=== PATIENT | female | born 1975 | race Hispanic/Latino ===

== ENCOUNTER 2020-08-24 21:26 | Inpatient (IN) | payer BC ==
[~2020-08-24 21:26] MED LIST: Iopamidol-370 76% 500 ML 1 ML ONE
[2020-08-24 23:59] LABS: SARS-CoV-2 NAA Rapid Test DETECTED (NotDetected)
[2020-08-25] MEDS ORDERED: Acetaminophen 650 MG Suppository PR PRN (02:39)
[2020-08-25] MEDS ORDERED: Acetaminophen 325 MG TAB PO PRN (02:39)
[2020-08-25] MEDS ORDERED: Ondansetron ODT 4 MG TAB PO PRN (02:39)
[2020-08-25 03:18] LABS: #Lymphocytes 0.9 thou/uL (1.20-3.40); #Monocytes 0.2 thou/uL (0.11-0.59); #Neutrophils 8.8 thou/uL (1.40-6.50); %Basophils 0.2 % (0.0-1.0); %Eosinophils 0.1 % (0.0-10.0); %Lymphocytes 9.2 % (21.0-51.0); %Monocytes 1.6 % (0.0-10.0); %Neutrophils 88.9 % (42.0-75.0); Hemoglobin 12.7 g/dL (12.0-16.0); Mean Corpuscular HGB CONC 34.5 g/dL (32.0-36.0); Mean Corpuscular Hemoglobin 29.9 pg (27.0-31.0); Mean Corpuscular Volume 86.6 fL (78.0-98.0); Mean Platelet Volume 7.5 fL (7.4-10.4); Platelet Count 167 thou/uL (130-400); RBC Distribution Width 13.2 % (11.5-14.5); Red Blood Cell (RBC) Count 4.24 mill/uL (4.20-5.40); White Blood Cell (WBC) Count 9.9 thou/uL (4.8-10.8)
[2020-08-25 03:36] LABS: Anion Gap 13 mmol/L (10-20); BUN (Urea Nitrogen) 16 mg/dL (7.0-18.7); Calc. Creatinine Clearance 124 mL/min (70-130); Calcium 7.2 mg/dL (7.8-10.44); Carbon Dioxide 17 mmol/L (22-29); Chloride 108 mmol/L (98-107); Glucose 141 mg/dL (70-105); Sodium 134 mmol/L (136-145)
[2020-08-25] MEDS ORDERED: Dexamethasone 4 mg/ml Vial SLOW IVP SCH (05:00)
[2020-08-25] MEDS: Ascorbic Acid 500 mg Chewable Tablet PO SCH (09:50)
[2020-08-25] MEDS: Cholecalciferol (Vitamin D3) 400 UNITS TAB PO SCH (09:51)
[2020-08-25] MEDS: Zinc Sulfate 220 MG CAP PO SCH (09:51)
[2020-08-25] MEDS ORDERED: Propofol 1,000 MG/100 ML VIAL IV ONE (17:26)
[2020-08-25] MEDS ORDERED: Succinylcholine 200 MG/10 ml SYRINGE FS ONE (17:40)
[2020-08-25] MEDS: methylPREDNISolone Sod Succ/PF 125 MG in Sodium Chloride 0.9% 250 ML 250 ML IVPB SCH (18:00)
[2020-08-25] MEDS ORDERED: Propofol BOLUS 1,000 MG/100 ML VIAL IV PRN (19:00)
[2020-08-25] MEDS ORDERED: DISCONTINUE PREVIOUS NARCOTIC PAIN MEDICATIONS AND BENZODIAZEPINES FS SCH (19:00)
[2020-08-25] MEDS ORDERED: Fentanyl BOLUS 250 ML IVPB PRN (19:00)
[2020-08-25] MEDS ORDERED: Ivermectin 3 MG TAB PO SCH (19:00)
[2020-08-25] MEDS: Propofol 1,000 MG/100 ML VIAL IV PRN (19:25)
[2020-08-25] MEDS: Pantoprazole 40 MG VIAL IVP SCH (19:27)
[2020-08-25] MEDS: Lorazepam 2 MG/ML VIAL SLOW IVP PRN ×3 (19:45→23:59)
[2020-08-25 19:57] LABS: Actual Bicarbonate (HCO3a) 21.6 mEq/L (22-28); Base Excess (BEa) -1.5 mEq/L (-2.0 to +3.0); CO2 Tension 31.6 mmHg (35.0-45.0); Calcium, Ionized (arterial) 1.06 mmol/L (1.12-1.30); Carboxyhemoglobin (COHb) 0.1 gm% (0.0-3.0); Hemoglobin (Hb) 13.2 g/dL (12.0-16.0); O2 Tension (PaO2), arterial 100.8 mmHg (80.0-100.0); Potassium - ABG Lab 3.85 mmol/L (3.70-5.30); pH, Arterial 7.45 (7.35-7.45)
[2020-08-25] MEDS: Vecuronium 10 MG VIAL IV PRN ×2 (20:10→22:21)
[2020-08-25 20:22] LABS: Puncture Site LRA
[2020-08-25] MEDS: Enoxaparin Sodium 60 MG/0.6 ML SYRINGE SC SCH (20:22)
[2020-08-25] MEDS: Colchicine 0.6 MG TAB PO SCH (20:22)
[2020-08-25] MEDS ORDERED: Doxycycline 100 MG in Syringe 0 ML IVPB SCH (21:00)
[2020-08-25] MEDS ORDERED: Enoxaparin Sodium 40 MG/0.4 ML SYRINGE SC SCH (21:00)
[2020-08-26] MEDS: Vecuronium 10 MG VIAL IV PRN ×11 (00:01→22:10)
[2020-08-26] MEDS: Propofol 1,000 MG/100 ML VIAL IV PRN ×6 (02:04→19:34)
[2020-08-26 03:45] LABS: #Lymphocytes 1.1 thou/uL (1.20-3.40); #Monocytes 0.7 thou/uL (0.11-0.59); #Neutrophils 9.4 thou/uL (1.40-6.50); %Basophils 0.1 % (0.0-1.0); %Eosinophils 0.1 % (0.0-10.0); %Lymphocytes 9.5 % (21.0-51.0); %Monocytes 6.3 % (0.0-10.0); %Neutrophils 84.1 % (42.0-75.0); Hemoglobin 11.7 g/dL (12.0-16.0); Mean Corpuscular Hemoglobin 29.2 pg (27.0-31.0); Mean Platelet Volume 7.7 fL (7.4-10.4); Platelet Count 241 thou/uL (130-400); RBC Distribution Width 13.2 % (11.5-14.5); Red Blood Cell (RBC) Count 4.01 mill/uL (4.20-5.40); White Blood Cell (WBC) Count 11.2 thou/uL (4.8-10.8)
[2020-08-26 04:26] LABS: ALT (SGPT) 50 U/L (8-55); AST (SGOT) 98 U/L (5-34); Albumin 2.7 g/dL (3.5-5.0); Alkaline Phosphatase 92 U/L (40-110); Anion Gap 16 mmol/L (10-20); BUN (Urea Nitrogen) 21 mg/dL (7.0-18.7); Bilirubin, Total 0.3 mg/dL (0.2-1.2); Calc. Creatinine Clearance 116 mL/min (70-130); Calcium 7.3 mg/dL (7.8-10.44); Carbon Dioxide 16 mmol/L (22-29); Chloride 112 mmol/L (98-107); Globulin 3.5 g/dL (2.4-3.5); Glucose 146 mg/dL (70-105); Potassium 3.9 mmol/L (3.5-5.1); Protein, Total 6.2 g/dL (6.0-8.3); Sodium 140 mmol/L (136-145)
[2020-08-26] MEDS: Lorazepam 2 MG/ML VIAL SLOW IVP PRN ×9 (04:48→22:05)
[2020-08-26] MEDS: Pantoprazole 40 MG VIAL IVP SCH ×2 (05:04→17:35)
[2020-08-26] MEDS: Ascorbic Acid 500 mg Chewable Tablet PO SCH (08:46)
[2020-08-26] MEDS: Enoxaparin Sodium 60 MG/0.6 ML SYRINGE SC SCH ×2 (08:46→19:32)
[2020-08-26] MEDS: Colchicine 0.6 MG TAB PO SCH ×2 (08:47→19:32)
[2020-08-26] MEDS: Cholecalciferol (Vitamin D3) 400 UNITS TAB PO SCH (08:47)
[2020-08-26] MEDS: Zinc Sulfate 220 MG CAP PO SCH (08:47)
[2020-08-26] MEDS: Aspirin Chewable 81 MG TAB PO SCH (08:47)
[2020-08-26] MEDS ORDERED: Fentanyl CADD 100 ML ONE (10:56)
[2020-08-26] MEDS: Fentanyl CADD 100 ML IV SCH (11:03)
[2020-08-26] MEDS: methylPREDNISolone Sod Succ/PF 125 MG in Sodium Chloride 0.9% 250 ML 250 ML IVPB SCH (17:35)
[2020-08-27] MEDS: Lorazepam 2 MG/ML VIAL SLOW IVP PRN ×8 (00:55→17:37)
[2020-08-27] MEDS: Vecuronium 10 MG VIAL IV PRN ×8 (00:55→17:37)
[2020-08-27 03:54] LABS: #Monocytes 0.9 thou/uL (0.11-0.59); #Neutrophils 11.3 thou/uL (1.40-6.50); %Basophils 0.2 % (0.0-1.0); %Lymphocytes 7.6 % (21.0-51.0); %Monocytes 6.8 % (0.0-10.0); %Neutrophils 85.5 % (42.0-75.0); Hemoglobin 11.5 g/dL (12.0-16.0); Mean Corpuscular HGB CONC 34.6 g/dL (32.0-36.0); Mean Corpuscular Hemoglobin 29.9 pg (27.0-31.0); Mean Corpuscular Volume 86.3 fL (78.0-98.0); Mean Platelet Volume 7.5 fL (7.4-10.4); Platelet Count 318 thou/uL (130-400); RBC Distribution Width 13.2 % (11.5-14.5); Red Blood Cell (RBC) Count 3.86 mill/uL (4.20-5.40); White Blood Cell (WBC) Count 13.2 thou/uL (4.8-10.8)
[2020-08-27 04:15] LABS: ALT (SGPT) 43 U/L (8-55); AST (SGOT) 49 U/L (5-34); Albumin 2.8 g/dL (3.5-5.0); Alkaline Phosphatase 86 U/L (40-110); Anion Gap 14 mmol/L (10-20); BUN (Urea Nitrogen) 27 mg/dL (7.0-18.7); Bilirubin, Total 0.2 mg/dL (0.2-1.2); Calc. Creatinine Clearance 108 mL/min (70-130); Calcium 7.6 mg/dL (7.8-10.44); Carbon Dioxide 19 mmol/L (22-29); Chloride 112 mmol/L (98-107); Globulin 3.2 g/dL (2.4-3.5); Glucose 140 mg/dL (70-105); Potassium 4.3 mmol/L (3.5-5.1); Sodium 141 mmol/L (136-145)
[2020-08-27] MEDS: Pantoprazole 40 MG VIAL IVP SCH ×2 (05:55→17:37)
[2020-08-27] MEDS: Propofol 1,000 MG/100 ML VIAL IV PRN ×5 (06:34→22:11)
[2020-08-27] MEDS: Ascorbic Acid 500 mg Chewable Tablet PO SCH (09:59)
[2020-08-27] MEDS: Zinc Sulfate 220 MG CAP PO SCH (09:59)
[2020-08-27] MEDS: Enoxaparin Sodium 60 MG/0.6 ML SYRINGE SC SCH ×2 (09:59→21:34)
[2020-08-27] MEDS: Colchicine 0.6 MG TAB PO SCH ×2 (09:59→21:35)
[2020-08-27] MEDS: Aspirin Chewable 81 MG TAB PO SCH (09:59)
[2020-08-27] MEDS: Cholecalciferol (Vitamin D3) 400 UNITS TAB PO SCH (09:59)
[2020-08-27] MEDS: methylPREDNISolone Sod Succ/PF 125 MG in Sodium Chloride 0.9% 250 ML 250 ML IVPB SCH (17:35)
[2020-08-27] MEDS ORDERED: Fentanyl CADD 100 ML ONE (17:59)
[2020-08-27] MEDS: Fentanyl CADD 100 ML IV SCH (18:02)
[2020-08-28] MEDS: Lorazepam 2 MG/ML VIAL SLOW IVP PRN ×2 (01:33→05:27)
[2020-08-28] MEDS: Vecuronium 10 MG VIAL IV PRN ×3 (01:33→20:24)
[2020-08-28 04:27] LABS: Band 3 % (5-11); Hemoglobin 11.5 g/dL (12.0-16.0); Hypochromia SLIGHT = 6-15 cells (100X) (0-5/hpf); Lymphocytes 4 % (21-51); MDiff Complete? YES; Mean Corpuscular HGB CONC 34.6 g/dL (32.0-36.0); Mean Corpuscular Volume 86.7 fL (78.0-98.0); Metamyelocyte 1 % (0-0); Monocytes 10 % (0-10); Neutrophil 82 % (42-75); Platelet Count 349 thou/uL (130-400); Platelet Morphology Comment Appears Adequate; RBC Distribution Width 13.2 % (11.5-14.5); Red Blood Cell (RBC) Count 3.82 mill/uL (4.20-5.40); White Blood Cell (WBC) Count 16.2 thou/uL (4.8-10.8)
[2020-08-28 04:31] LABS: ALT (SGPT) 45 U/L (8-55); AST (SGOT) 42 U/L (5-34); Albumin 2.8 g/dL (3.5-5.0); Alkaline Phosphatase 84 U/L (40-110); Anion Gap 15 mmol/L (10-20); BUN (Urea Nitrogen) 33 mg/dL (7.0-18.7); Bilirubin, Total 0.2 mg/dL (0.2-1.2); Calc. Creatinine Clearance 124 mL/min (70-130); Calcium 7.6 mg/dL (7.8-10.44); Carbon Dioxide 20 mmol/L (22-29); Chloride 111 mmol/L (98-107); Globulin 3.1 g/dL (2.4-3.5); Glucose 138 mg/dL (70-105); Potassium 4.7 mmol/L (3.5-5.1); Protein, Total 5.9 g/dL (6.0-8.3); Sodium 141 mmol/L (136-145)
[2020-08-28] MEDS: Pantoprazole 40 MG VIAL IVP SCH ×2 (05:09→18:28)
[2020-08-28] MEDS ORDERED: Sterile Water 10 ML ONE (05:24)
[2020-08-28] MEDS: Colchicine 0.6 MG TAB PO SCH ×2 (08:33→20:24)
[2020-08-28] MEDS: Enoxaparin Sodium 60 MG/0.6 ML SYRINGE SC SCH ×2 (08:33→20:24)
[2020-08-28] MEDS: methylPREDNISolone Sod Succ/PF 125 MG in Sodium Chloride 0.9% 250 ML 250 ML IVPB SCH (08:33)
[2020-08-28] MEDS: Ascorbic Acid 500 mg Chewable Tablet PO SCH (08:33)
[2020-08-28] MEDS: Aspirin Chewable 81 MG TAB PO SCH (08:33)
[2020-08-28] MEDS: Cholecalciferol (Vitamin D3) 400 UNITS TAB PO SCH (08:33)
[2020-08-28] MEDS: Zinc Sulfate 220 MG CAP PO SCH (08:33)
[2020-08-28] MEDS: Propofol 1,000 MG/100 ML VIAL IV PRN ×2 (08:34→18:28)
[2020-08-28] MEDS ORDERED: Fentanyl CADD 100 ML ONE (14:16)
[2020-08-29] MEDS: Propofol 1,000 MG/100 ML VIAL IV PRN ×5 (01:31→21:39)
[2020-08-29 04:12] LABS: Hemoglobin 11.7 g/dL (12.0-16.0); Mean Corpuscular HGB CONC 35.4 g/dL (32.0-36.0); Mean Corpuscular Hemoglobin 30.3 pg (27.0-31.0); Mean Corpuscular Volume 85.4 fL (78.0-98.0); Mean Platelet Volume 7.3 fL (7.4-10.4); Platelet Count 391 thou/uL (130-400); RBC Distribution Width 13.2 % (11.5-14.5); Red Blood Cell (RBC) Count 3.88 mill/uL (4.20-5.40); White Blood Cell (WBC) Count 15.1 thou/uL (4.8-10.8)
[2020-08-29 04:28] LABS: Anion Gap 16 mmol/L (10-20); BUN (Urea Nitrogen) 35 mg/dL (7.0-18.7); Calc. Creatinine Clearance 137 mL/min (70-130); Carbon Dioxide 18 mmol/L (22-29); Chloride 109 mmol/L (98-107); Potassium 4.6 mmol/L (3.5-5.1); Sodium 138 mmol/L (136-145)
[2020-08-29 04:29] LABS: ALT (SGPT) 40 U/L (8-55); AST (SGOT) 33 U/L (5-34); Albumin 2.7 g/dL (3.5-5.0); Alkaline Phosphatase 98 U/L (40-110); Bilirubin, Total 0.3 mg/dL (0.2-1.2); Calcium 7.9 mg/dL (7.8-10.44); Globulin 3.2 g/dL (2.4-3.5); Glucose 124 mg/dL (70-105); Protein, Total 5.9 g/dL (6.0-8.3)
[2020-08-29 04:34] LABS: Lymphocytes 4 % (21-51); MDiff Complete? YES; Metamyelocyte 1 % (0-0); Monocytes 5 % (0-10); Neutrophil 88 % (42-75); Platelet Morphology Comment Appears Adequate; Reactive Lymphocytes 2 % (0-10)
[2020-08-29] MEDS ORDERED: Fentanyl CADD 100 ML ONE ×2 (05:21→17:33)
[2020-08-29] MEDS: Fentanyl CADD 100 ML IV SCH ×2 (05:23→17:56)
[2020-08-29] MEDS: Pantoprazole 40 MG VIAL IVP SCH ×2 (05:23→17:54)
[2020-08-29] MEDS: Ascorbic Acid 500 mg Chewable Tablet PO SCH (08:19)
[2020-08-29] MEDS: Aspirin Chewable 81 MG TAB PO SCH (08:19)
[2020-08-29] MEDS: Colchicine 0.6 MG TAB PO SCH ×2 (08:19→21:39)
[2020-08-29] MEDS: Zinc Sulfate 220 MG CAP PO SCH (08:19)
[2020-08-29] MEDS: Cholecalciferol (Vitamin D3) 400 UNITS TAB PO SCH (08:19)
[2020-08-29] MEDS: Enoxaparin Sodium 60 MG/0.6 ML SYRINGE SC SCH ×2 (08:20→21:39)
[2020-08-29] MEDS: methylPREDNISolone Sod Succ/PF 125 MG in Sodium Chloride 0.9% 250 ML 250 ML IVPB SCH (15:53)
[2020-08-29] MEDS: Lorazepam 2 MG/ML VIAL SLOW IVP PRN (23:35)
[2020-08-30] MEDS ORDERED: Fentanyl CADD 100 ML ONE ×2 (05:38→20:51)
[2020-08-30] MEDS: Pantoprazole 40 MG VIAL IVP SCH ×2 (05:41→17:35)
[2020-08-30] MEDS: Fentanyl CADD 100 ML IV SCH (05:41)
[2020-08-30] MEDS: Propofol 1,000 MG/100 ML VIAL IV PRN ×3 (05:47→17:35)
[2020-08-30 07:47] LABS: Chloride 106 mmol/L (98-107); Potassium 4.1 mmol/L (3.5-5.1)
[2020-08-30 07:48] LABS: Calcium 8.1 mg/dL (7.8-10.44); Glucose 134 mg/dL (70-105)
[2020-08-30 07:50] LABS: Anion Gap 13 mmol/L (10-20); Carbon Dioxide 21 mmol/L (22-29)
[2020-08-30 07:53] LABS: BUN (Urea Nitrogen) 31 mg/dL (7.0-18.7)
[2020-08-30 07:56] LABS: Calc. Creatinine Clearance 142 mL/min (70-130)
[2020-08-30] MEDS: Ascorbic Acid 500 mg Chewable Tablet PO SCH (07:58)
[2020-08-30] MEDS: Zinc Sulfate 220 MG CAP PO SCH (07:58)
[2020-08-30] MEDS: Colchicine 0.6 MG TAB PO SCH ×2 (07:58→20:17)
[2020-08-30] MEDS: Cholecalciferol (Vitamin D3) 400 UNITS TAB PO SCH (07:58)
[2020-08-30] MEDS: Aspirin Chewable 81 MG TAB PO SCH (07:58)
[2020-08-30] MEDS: Enoxaparin Sodium 60 MG/0.6 ML SYRINGE SC SCH ×2 (07:58→20:19)
[2020-08-30 08:34] LABS: Hemoglobin 12.2 g/dL (12.0-16.0); Red Blood Cell (RBC) Count 4.16 mill/uL (4.20-5.40); White Blood Cell (WBC) Count 15.2 thou/uL (4.8-10.8)
[2020-08-30 08:35] LABS: Mean Corpuscular HGB CONC 34.4 g/dL (32.0-36.0); Mean Corpuscular Hemoglobin 29.4 pg (27.0-31.0); Mean Corpuscular Volume 85.5 fL (78.0-98.0)
[2020-08-30 08:36] LABS: Mean Platelet Volume 7.3 fL (7.4-10.4); Platelet Count 456 thou/uL (130-400); RBC Distribution Width 12.9 % (11.5-14.5)
[2020-08-30 08:39] LABS: Platelet Morphology Comment Appears Adequate
[2020-08-30 08:41] LABS: Band 8 % (5-11); Lymphocytes 9 % (21-51); Monocytes 3 % (0-10)
[2020-08-30 08:42] LABS: Neutrophil 80 % (42-75)
[2020-08-30] MEDS: Lorazepam 2 MG/ML VIAL SLOW IVP PRN ×2 (09:58→15:42)
[2020-08-30] MEDS: methylPREDNISolone Sod Succ/PF 125 MG in Sodium Chloride 0.9% 250 ML 250 ML IVPB SCH (15:42)
[2020-08-31] MEDS: Propofol 1,000 MG/100 ML VIAL IV PRN ×4 (00:47→21:30)
[2020-08-31 04:50] LABS: Mean Corpuscular HGB CONC 35.3 g/dL (32.0-36.0); Mean Corpuscular Hemoglobin 29.6 pg (27.0-31.0); Mean Corpuscular Volume 83.9 fL (78.0-98.0); Mean Platelet Volume 7.4 fL (7.4-10.4); Platelet Count 487 thou/uL (130-400); RBC Distribution Width 13.1 % (11.5-14.5); Red Blood Cell (RBC) Count 4.37 mill/uL (4.20-5.40)
[2020-08-31 05:09] LABS: Eosinophils 1 % (0-10); Lymphocytes 8 % (21-51); MDiff Complete? YES; Metamyelocyte 1 % (0-0); Monocytes 4 % (0-10); Neutrophil 85 % (42-75); Platelet Morphology Comment Appears Increased; Reactive Lymphocytes 1 % (0-10)
[2020-08-31 05:10] LABS: Anion Gap 14 mmol/L (10-20); BUN (Urea Nitrogen) 28 mg/dL (7.0-18.7); Calc. Creatinine Clearance 148 mL/min (70-130); Calcium 8.2 mg/dL (7.8-10.44); Carbon Dioxide 19 mmol/L (22-29); Chloride 104 mmol/L (98-107); Glucose 146 mg/dL (70-105); Sodium 133 mmol/L (136-145)
[2020-08-31] MEDS: Pantoprazole 40 MG VIAL IVP SCH ×2 (06:14→17:25)
[2020-08-31] MEDS: Ascorbic Acid 500 mg Chewable Tablet PO SCH (07:46)
[2020-08-31] MEDS: Zinc Sulfate 220 MG CAP PO SCH (07:46)
[2020-08-31] MEDS: Enoxaparin Sodium 60 MG/0.6 ML SYRINGE SC SCH ×2 (07:46→20:33)
[2020-08-31] MEDS: Colchicine 0.6 MG TAB PO SCH ×2 (07:46→20:33)
[2020-08-31] MEDS: Cholecalciferol (Vitamin D3) 400 UNITS TAB PO SCH (07:46)
[2020-08-31] MEDS: Aspirin Chewable 81 MG TAB PO SCH (07:46)
[2020-08-31] MEDS: Lorazepam 2 MG/ML VIAL SLOW IVP PRN ×3 (07:47→15:57)
[2020-08-31 09:20] LABS: Sodium 136 mmol/L (136-145)
[2020-08-31 14:48] LABS: Bilirubin Negative (Negative); Blood, Urine Negative (Negative); Clarity Clear (Clear); Glucose, Urine (Dipstick) Normal (Negative); Ketone, Urine Negative (Negative); Leukocyte Negative Leu/uL (Negative); Nitrite Negative (Negative); Protein, Urine (Dipstick) Negative (Neg-Trace); Specific Gravity, Urine 1.016 (1.002-1.036); Urobilinogen Normal mg/dL (Less than 2); pH, Urine 6.5 (5.0-9.0)
[2020-08-31] MEDS: methylPREDNISolone Sod Succ/PF 125 MG in Sodium Chloride 0.9% 250 ML 250 ML IVPB SCH (16:35)
[2020-09-01] MEDS: Propofol 1,000 MG/100 ML VIAL IV PRN ×5 (02:00→21:45)
[2020-09-01 04:29] LABS: Anion Gap 15 mmol/L (10-20); BUN (Urea Nitrogen) 27 mg/dL (7.0-18.7); Calc. Creatinine Clearance 148 mL/min (70-130); Calcium 8.2 mg/dL (7.8-10.44); Carbon Dioxide 19 mmol/L (22-29); Chloride 107 mmol/L (98-107); Glucose 146 mg/dL (70-105); Potassium 4.1 mmol/L (3.5-5.1); Sodium 137 mmol/L (136-145)
[2020-09-01 05:01] LABS: Band 14 % (5-11); Hemoglobin 13.2 g/dL (12.0-16.0); Lymphocytes 6 % (21-51); MDiff Complete? YES; Mean Corpuscular HGB CONC 35.9 g/dL (32.0-36.0); Mean Corpuscular Hemoglobin 30.4 pg (27.0-31.0); Mean Corpuscular Volume 84.6 fL (78.0-98.0); Mean Platelet Volume 7.5 fL (7.4-10.4); Monocytes 6 % (0-10); Neutrophil 74 % (42-75); Platelet Count 432 thou/uL (130-400); RBC Distribution Width 13.2 % (11.5-14.5); Red Blood Cell (RBC) Count 4.35 mill/uL (4.20-5.40)
[2020-09-01] MEDS: Pantoprazole 40 MG VIAL IVP SCH ×2 (05:21→17:22)
[2020-09-01 07:05] LABS: Actual Bicarbonate (HCO3a) 21.2 mEq/L (22-28); CO2 Tension 29.5 mmHg (35.0-45.0); Calcium, Ionized (arterial) 1.15 mmol/L (1.12-1.30); Carboxyhemoglobin (COHb) 0.6 gm% (0.0-3.0); Hemoglobin (Hb) 16.3 g/dL (12.0-16.0); O2 Tension (PaO2), arterial 93.2 mmHg (80.0-100.0); Potassium - ABG Lab 4.11 mmol/L (3.70-5.30); pH, Arterial 7.47 (7.35-7.45)
[2020-09-01 07:19] LABS: ALV-art Gradient 155.125 mmHg (0-20); Puncture Site RRA
[2020-09-01] MEDS: Ascorbic Acid 500 mg Chewable Tablet PO SCH (08:12)
[2020-09-01] MEDS: Aspirin Chewable 81 MG TAB PO SCH (08:12)
[2020-09-01] MEDS: Cholecalciferol (Vitamin D3) 400 UNITS TAB PO SCH (08:12)
[2020-09-01] MEDS: Zinc Sulfate 220 MG CAP PO SCH (08:13)
[2020-09-01] MEDS: Enoxaparin Sodium 60 MG/0.6 ML SYRINGE SC SCH ×2 (08:13→21:33)
[2020-09-01] MEDS: Colchicine 0.6 MG TAB PO SCH ×2 (08:13→21:33)
[2020-09-01] MEDS ORDERED: Furosemide 40 MG/4 ML VIAL IVP SCH (08:38)
[2020-09-01] MEDS ORDERED: Meropenem 2 GM in Admixture Fee 1 EACH IVPB SCH ×2 (09:15→14:00)
[2020-09-01] MEDS ORDERED: MEROPENEM 1 GM/50 ML 1 GM in Premix Bag 1 BAG IVPB SCH (09:45)
[2020-09-01] MEDS: Scopolamine 1.5 mg/72 hour Patch TD SCH (11:11)
[2020-09-01] MEDS: methylPREDNISolone Sod Succ/PF 125 MG in Sodium Chloride 0.9% 250 ML 250 ML IVPB SCH (17:21)
[2020-09-01] MEDS: MEROPENEM 1 GM/50 ML 1 GM in Premix Bag 1 BAG IVPB SCH (17:22)
[2020-09-02] MEDS: MEROPENEM 1 GM/50 ML 1 GM in Premix Bag 1 BAG IVPB SCH ×3 (01:05→17:47)
[2020-09-02] MEDS: Propofol 1,000 MG/100 ML VIAL IV PRN ×5 (02:16→21:05)
[2020-09-02 04:22] LABS: Anion Gap 16 mmol/L (10-20); BUN (Urea Nitrogen) 33 mg/dL (7.0-18.7); Calc. Creatinine Clearance 130 mL/min (70-130); Calcium 8.8 mg/dL (7.8-10.44); Carbon Dioxide 19 mmol/L (22-29); Chloride 105 mmol/L (98-107); Glucose 146 mg/dL (70-105); Potassium 4.1 mmol/L (3.5-5.1); Sodium 136 mmol/L (136-145)
[2020-09-02 04:45] LABS: Band 6 % (5-11); Hemoglobin 13.8 g/dL (12.0-16.0); Lymphocytes 3 % (21-51); MDiff Complete? YES; Mean Corpuscular HGB CONC 35.3 g/dL (32.0-36.0); Mean Corpuscular Hemoglobin 30.1 pg (27.0-31.0); Mean Corpuscular Volume 85.2 fL (78.0-98.0); Mean Platelet Volume 8.1 fL (7.4-10.4); Monocytes 7 % (0-10); Neutrophil 84 % (42-75); Platelet Count 416 thou/uL (130-400); RBC Distribution Width 13.5 % (11.5-14.5); White Blood Cell (WBC) Count 15.8 thou/uL (4.8-10.8)
[2020-09-02] MEDS: Pantoprazole 40 MG VIAL IVP SCH ×2 (05:15→17:47)
[2020-09-02] MEDS: Cholecalciferol (Vitamin D3) 400 UNITS TAB PO SCH (08:34)
[2020-09-02] MEDS: Colchicine 0.6 MG TAB PO SCH ×2 (08:34→21:06)
[2020-09-02] MEDS: Ascorbic Acid 500 mg Chewable Tablet PO SCH (08:34)
[2020-09-02] MEDS: Zinc Sulfate 220 MG CAP PO SCH (08:34)
[2020-09-02] MEDS: Aspirin Chewable 81 MG TAB PO SCH (08:34)
[2020-09-02] MEDS: Enoxaparin Sodium 60 MG/0.6 ML SYRINGE SC SCH ×2 (08:48→21:06)
[2020-09-02] MEDS: fentaNYL 50 mcg/hour Patch TD SCH (09:07)
[2020-09-02] MEDS: Lorazepam 2 MG/ML VIAL SLOW IVP PRN ×2 (13:21→21:12)
[2020-09-02] MEDS: methylPREDNISolone Sod Succ/PF 125 MG in Sodium Chloride 0.9% 250 ML 250 ML IVPB SCH (17:46)
[2020-09-03] MEDS: Propofol 1,000 MG/100 ML VIAL IV PRN ×2 (01:16→05:52)
[2020-09-03] MEDS: MEROPENEM 1 GM/50 ML 1 GM in Premix Bag 1 BAG IVPB SCH ×3 (02:33→17:24)
[2020-09-03 04:45] LABS: Hemoglobin 12.8 g/dL (12.0-16.0); Mean Corpuscular HGB CONC 35.6 g/dL (32.0-36.0); Mean Corpuscular Hemoglobin 30.8 pg (27.0-31.0); Mean Corpuscular Volume 86.6 fL (78.0-98.0); Mean Platelet Volume 8.1 fL (7.4-10.4); Platelet Count 353 thou/uL (130-400); RBC Distribution Width 13.6 % (11.5-14.5); Red Blood Cell (RBC) Count 4.17 mill/uL (4.20-5.40)
[2020-09-03] MEDS: Lorazepam 2 MG/ML VIAL SLOW IVP PRN (04:55)
[2020-09-03 04:56] LABS: Anion Gap 12 mmol/L (10-20); BUN (Urea Nitrogen) 32 mg/dL (7.0-18.7); Calc. Creatinine Clearance 143 mL/min (70-130); Carbon Dioxide 22 mmol/L (22-29); Chloride 106 mmol/L (98-107); Glucose 152 mg/dL (70-105); Potassium 4.2 mmol/L (3.5-5.1); Sodium 136 mmol/L (136-145)
[2020-09-03] MEDS: Pantoprazole 40 MG VIAL IVP SCH ×2 (05:24→17:24)
[2020-09-03 05:38] LABS: Band 10 % (5-11); Eosinophils 2 % (0-10); Lymphocytes 4 % (21-51); MDiff Complete? YES; Monocytes 7 % (0-10); Neutrophil 77 % (42-75)
[2020-09-03] MEDS: Colchicine 0.6 MG TAB PO SCH ×2 (08:30→20:17)
[2020-09-03] MEDS: Ascorbic Acid 500 mg Chewable Tablet PO SCH (08:30)
[2020-09-03] MEDS: Zinc Sulfate 220 MG CAP PO SCH (08:30)
[2020-09-03] MEDS: Cholecalciferol (Vitamin D3) 400 UNITS TAB PO SCH (08:30)
[2020-09-03] MEDS: Enoxaparin Sodium 60 MG/0.6 ML SYRINGE SC SCH ×2 (08:31→20:16)
[2020-09-03] MEDS: Aspirin Chewable 81 MG TAB PO SCH (08:31)
[2020-09-03] MEDS: Morphine 2 MG/ML VIAL SLOW IVP PRN ×2 (11:41→20:17)
[2020-09-03] MEDS: methylPREDNISolone Sod Succ/PF 125 MG in Sodium Chloride 0.9% 250 ML 250 ML IVPB SCH (17:23)
[2020-09-04] MEDS: MEROPENEM 1 GM/50 ML 1 GM in Premix Bag 1 BAG IVPB SCH ×3 (01:31→18:15)
[2020-09-04] MEDS: methylPREDNISolone Sod Succ/PF 125 MG in Sodium Chloride 0.9% 250 ML 250 ML IVPB SCH (01:33)
[2020-09-04] MEDS: Pantoprazole 40 MG VIAL IVP SCH ×2 (06:04→18:15)
[2020-09-04] MEDS: Ascorbic Acid 500 mg Chewable Tablet PO SCH (09:19)
[2020-09-04] MEDS: Colchicine 0.6 MG TAB PO SCH ×2 (09:20→21:20)
[2020-09-04] MEDS: Zinc Sulfate 220 MG CAP PO SCH (09:20)
[2020-09-04] MEDS: Aspirin Chewable 81 MG TAB PO SCH (09:20)
[2020-09-04] MEDS: Cholecalciferol (Vitamin D3) 400 UNITS TAB PO SCH (09:20)
[2020-09-04] MEDS: Scopolamine 1.5 mg/72 hour Patch TD SCH (09:21)
[2020-09-04] MEDS: Enoxaparin Sodium 60 MG/0.6 ML SYRINGE SC SCH ×2 (09:21→21:19)
[2020-09-04] MEDS: Lorazepam 2 MG/ML VIAL SLOW IVP PRN (15:50)
[2020-09-05] MEDS: methylPREDNISolone Sod Succ/PF 125 MG in Sodium Chloride 0.9% 250 ML 250 ML IVPB SCH ×2 (00:20→22:36)
[2020-09-05] MEDS: MEROPENEM 1 GM/50 ML 1 GM in Premix Bag 1 BAG IVPB SCH ×3 (01:42→17:17)
[2020-09-05 04:53] LABS: Anion Gap 12 mmol/L (10-20); BUN (Urea Nitrogen) 38 mg/dL (7.0-18.7); Calc. Creatinine Clearance 162 mL/min (70-130); Carbon Dioxide 23 mmol/L (22-29); Chloride 106 mmol/L (98-107); Glucose 146 mg/dL (70-105); Sodium 137 mmol/L (136-145)
[2020-09-05 05:14] LABS: #Lymphocytes 0.8 thou/uL (1.20-3.40); #Monocytes 0.8 thou/uL (0.11-0.59); #Neutrophils 9.4 thou/uL (1.40-6.50); %Basophils 0.2 % (0.0-1.0); %Eosinophils 0.2 % (0.0-10.0); %Lymphocytes 7.5 % (21.0-51.0); %Monocytes 7.6 % (0.0-10.0); %Neutrophils 84.6 % (42.0-75.0); Hemoglobin 11.4 g/dL (12.0-16.0); MDiff Complete? YES; Mean Corpuscular HGB CONC 34.8 g/dL (32.0-36.0); Mean Corpuscular Hemoglobin 30.4 pg (27.0-31.0); Mean Corpuscular Volume 87.3 fL (78.0-98.0); Mean Platelet Volume 8.5 fL (7.4-10.4); Platelet Clumps MODERATE; Platelet Morphology Comment PLT clumps seen-ADEQ; RBC Distribution Width 13.9 % (11.5-14.5); Red Blood Cell (RBC) Count 3.75 mill/uL (4.20-5.40); White Blood Cell (WBC) Count 11.1 thou/uL (4.8-10.8)
[2020-09-05] MEDS: Pantoprazole 40 MG VIAL IVP SCH ×2 (05:46→17:16)
[2020-09-05] MEDS: Aspirin Chewable 81 MG TAB PO SCH (08:15)
[2020-09-05] MEDS: Enoxaparin Sodium 60 MG/0.6 ML SYRINGE SC SCH ×2 (08:15→21:57)
[2020-09-05] MEDS: Colchicine 0.6 MG TAB PO SCH ×2 (08:15→21:57)
[2020-09-05] MEDS: Cholecalciferol (Vitamin D3) 400 UNITS TAB PO SCH (08:15)
[2020-09-05] MEDS: fentaNYL 50 mcg/hour Patch TD SCH (08:16)
[2020-09-05] MEDS: Zinc Sulfate 220 MG CAP PO SCH (08:16)
[2020-09-05] MEDS: Ascorbic Acid 500 mg Chewable Tablet PO SCH (08:16)
[2020-09-05] MEDS: Lorazepam 2 MG/ML VIAL SLOW IVP PRN (17:48)
[2020-09-06] MEDS: MEROPENEM 1 GM/50 ML 1 GM in Premix Bag 1 BAG IVPB SCH ×3 (02:28→17:08)
[2020-09-06] MEDS: Pantoprazole 40 MG VIAL IVP SCH ×2 (05:47→17:07)
[2020-09-06 07:45] LABS: #Lymphocytes 0.8 thou/uL (1.20-3.40); #Monocytes 0.8 thou/uL (0.11-0.59); %Basophils 0.3 % (0.0-1.0); %Eosinophils 0.3 % (0.0-10.0); %Lymphocytes 8.2 % (21.0-51.0); %Monocytes 8.3 % (0.0-10.0); Mean Corpuscular HGB CONC 33.4 g/dL (32.0-36.0); Mean Corpuscular Hemoglobin 29.9 pg (27.0-31.0); Mean Corpuscular Volume 89.6 fL (78.0-98.0); Mean Platelet Volume 7.9 fL (7.4-10.4); Platelet Count 289 thou/uL (130-400); RBC Distribution Width 13.8 % (11.5-14.5); Red Blood Cell (RBC) Count 3.66 mill/uL (4.20-5.40); White Blood Cell (WBC) Count 9.6 thou/uL (4.8-10.8)
[2020-09-06 07:56] LABS: Anion Gap 14 mmol/L (10-20); BUN (Urea Nitrogen) 33 mg/dL (7.0-18.7); Calc. Creatinine Clearance 168 mL/min (70-130); Calcium 7.8 mg/dL (7.8-10.44); Carbon Dioxide 21 mmol/L (22-29); Chloride 107 mmol/L (98-107); Glucose 156 mg/dL (70-105); Potassium 4.1 mmol/L (3.5-5.1); Sodium 138 mmol/L (136-145)
[2020-09-06] MEDS: Ascorbic Acid 500 mg Chewable Tablet PO SCH (08:19)
[2020-09-06] MEDS: Enoxaparin Sodium 60 MG/0.6 ML SYRINGE SC SCH ×2 (08:19→20:12)
[2020-09-06] MEDS: Cholecalciferol (Vitamin D3) 400 UNITS TAB PO SCH (08:19)
[2020-09-06] MEDS: Colchicine 0.6 MG TAB PO SCH ×2 (08:19→20:12)
[2020-09-06] MEDS: Zinc Sulfate 220 MG CAP PO SCH (08:19)
[2020-09-06] MEDS: Aspirin Chewable 81 MG TAB PO SCH (08:19)
[2020-09-06] MEDS: Ondansetron PF 4 MG/2 ML Vial IVP PRN (13:10)
[2020-09-07] MEDS: MEROPENEM 1 GM/50 ML 1 GM in Premix Bag 1 BAG IVPB SCH (01:34)
[2020-09-07 04:28] LABS: #Monocytes 1.1 thou/uL (0.11-0.59); #Neutrophils 9.5 thou/uL (1.40-6.50); %Basophils 0.1 % (0.0-1.0); %Eosinophils 0.1 % (0.0-10.0); %Lymphocytes 8.6 % (21.0-51.0); %Monocytes 9.6 % (0.0-10.0); %Neutrophils 81.5 % (42.0-75.0); Hemoglobin 10.4 g/dL (12.0-16.0); Mean Corpuscular HGB CONC 34.4 g/dL (32.0-36.0); Mean Corpuscular Hemoglobin 30.2 pg (27.0-31.0); Mean Corpuscular Volume 87.9 fL (78.0-98.0); Platelet Count 330 thou/uL (130-400); Red Blood Cell (RBC) Count 3.44 mill/uL (4.20-5.40); White Blood Cell (WBC) Count 11.7 thou/uL (4.8-10.8)
[2020-09-07 04:41] LABS: Anion Gap 11 mmol/L (10-20); BUN (Urea Nitrogen) 33 mg/dL (7.0-18.7); Calc. Creatinine Clearance 155 mL/min (70-130); Carbon Dioxide 29 mmol/L (22-29); Chloride 105 mmol/L (98-107); Glucose 121 mg/dL (70-105); Potassium 4.3 mmol/L (3.5-5.1); Sodium 141 mmol/L (136-145)
[2020-09-07] MEDS: Pantoprazole 40 MG VIAL IVP SCH (06:38)
[2020-09-07] MEDS: Ondansetron PF 4 MG/2 ML Vial IVP PRN (08:49)
[2020-09-07] MEDS: Cholecalciferol (Vitamin D3) 400 UNITS TAB PO SCH (09:30)
[2020-09-07] MEDS: Apixaban 5 MG TAB PO SCH ×2 (09:30→19:40)
[2020-09-07] MEDS: Colchicine 0.6 MG TAB PO SCH (09:30)
[2020-09-07] MEDS: Aspirin Chewable 81 MG TAB PO SCH (09:30)
[2020-09-07] MEDS: Ascorbic Acid 500 mg Chewable Tablet PO SCH (09:30)
[2020-09-07] MEDS: Zinc Sulfate 220 MG CAP PO SCH (09:30)
[2020-09-07 13:29] VITALS: BMI 42.0
[2020-09-08] MEDS: Apixaban 5 MG TAB PO SCH ×2 (08:58→20:35)
[2020-09-08] MEDS: Cholecalciferol (Vitamin D3) 400 UNITS TAB PO SCH (08:58)
[2020-09-08] MEDS: Ascorbic Acid 500 mg Chewable Tablet PO SCH (08:58)
[2020-09-08] MEDS: Aspirin Chewable 81 MG TAB PO SCH (08:58)
[2020-09-08] MEDS: Zinc Sulfate 220 MG CAP PO SCH (08:58)
[2020-09-08] MEDS: Colchicine 0.6 MG TAB PO SCH (08:58)
[2020-09-08] MEDS: predniSONE 20 MG TAB PO SCH (08:58)
[2020-09-09 06:36] LABS: #Eosinphils 0.2 thou/uL (0.0-0.7); #Monocytes 1.1 thou/uL (0.11-0.59); #Neutrophils 4.5 thou/uL (1.40-6.50); %Eosinophils 2.9 % (0.0-10.0); %Lymphocytes 25.8 % (21.0-51.0); %Monocytes 13.7 % (0.0-10.0); %Neutrophils 57.7 % (42.0-75.0); Hemoglobin 9.8 g/dL (12.0-16.0); Mean Corpuscular Volume 88.5 fL (78.0-98.0); Mean Platelet Volume 7.9 fL (7.4-10.4); Platelet Count 249 thou/uL (130-400); RBC Distribution Width 14.3 % (11.5-14.5); Red Blood Cell (RBC) Count 3.17 mill/uL (4.20-5.40); White Blood Cell (WBC) Count 7.7 thou/uL (4.8-10.8)
[2020-09-09 06:52] LABS: Anion Gap 12 mmol/L (10-20); BUN (Urea Nitrogen) 28 mg/dL (7.0-18.7); Calc. Creatinine Clearance 145 mL/min (70-130); Calcium 7.9 mg/dL (7.8-10.44); Carbon Dioxide 24 mmol/L (22-29); Chloride 109 mmol/L (98-107); Glucose 87 mg/dL (70-105); Potassium 3.4 mmol/L (3.5-5.1); Sodium 142 mmol/L (136-145)
[2020-09-09] MEDS: predniSONE 20 MG TAB PO SCH (08:34)
[2020-09-09] MEDS: Colchicine 0.6 MG TAB PO SCH (08:34)
[2020-09-09] MEDS: Zinc Sulfate 220 MG CAP PO SCH (08:34)
[2020-09-09] MEDS: Cholecalciferol (Vitamin D3) 400 UNITS TAB PO SCH (08:34)
[2020-09-09] MEDS: Aspirin Chewable 81 MG TAB PO SCH (08:34)
[2020-09-09] MEDS: Ascorbic Acid 500 mg Chewable Tablet PO SCH (08:34)
[2020-09-09] MEDS: Apixaban 5 MG TAB PO SCH (08:34)
[2020-09-09 14:52] VITALS: BP 142/79; TEMP 98.6
== END 2020-09-09 14:47 | disposition home or self-care (01) | DRG 207 ==
LOC: ERS 21:26 → IMCU/EMU 22:37 → CCU 08-25 16:57 → T4-A 09-08 17:35
PROVIDERS: ADMIT Student in an Organized Health Care Education/Training Program; ATTEND Family Medicine
PROC: 8E0ZXY6 Isolation (ICD-10-PCS; 2020-08-24)
PROC: 5A1955Z Respiratory Ventilation, Greater than 96 Consecutive Hours (ICD-10-PCS; principal; 2020-08-25)
PROC: 5A09357 Assistance with Respiratory Ventilation, Less than 24 Consecutive Hours, Continuous Positive Airway Pressure (ICD-10-PCS; 2020-08-25)
PROC: 0BH17EZ Insertion of Endotracheal Airway into Trachea, Via Natural or Artificial Opening (ICD-10-PCS; 2020-08-25)
PROC: 0D9670Z Drainage of Stomach with Drainage Device, Via Natural or Artificial Opening (ICD-10-PCS; 2020-08-25)
DX: U07.1 COVID-19 (principal); J12.82 Pneumonia due to coronavirus disease 2019; J80 Acute respiratory distress syndrome; E87.1 Hypo-osmolality and hyponatremia; M21.379 Foot drop, unspecified foot; E66.01 Morbid (severe) obesity due to excess calories; R13.10 Dysphagia, unspecified; D64.9 Anemia, unspecified; E87.6 Hypokalemia; D72.829 Elevated white blood cell count, unspecified; Z78.1 Physical restraint status; Z68.38 Body mass index [BMI] 38.0-38.9, adult
CPT/HCPCS: 36415; 36600; 71045; 71275; 80048; 80053; 81003; 82728; 82805; 85025; 85379; 86140; 87040; 87070; 87149; 87205; 93005; 94002; 94003; 94660; C9113; J1100; J1650; J1940; J2060; J2185; J2270; J2405; J2704; J2930; J3010; J3262; J3490; J7050; J7512; Q0162; Q9967; U0002; U0005